=== PATIENT | female | born 1960 | race Caucasian/White ===

== ENCOUNTER 2018-06-13 15:21 | Outpatient (CLI) | payer OTHER ==
--- NOTE | 2018-06-13 17:34 | BD ---
Exam: DEXA Bone Density 06/13/18 HISTORY: 57-year-old postmenopausal female for screening. Lumbar Spine: BMD (g/cm2) L1 0.816 T-Score: -1.6 L2 0.879 T-Score: -1.4 L3 0.891 T-Score: -1.8 L4 0.916 T-Score: -1.3 L1-L4 0.876 T-Score: -1.6 Left Femoral Neck: 0.630 T-Score: -2.0 Total proximal Femur: 0.815 T-Score: -1.0 Impression: Osteopenia. This patient has a ten year WHO fracture risk of a major osteoporotic fracture of 12% and hip fracture of 1.6%. When compared to the prior examination the bone density in the hip has increas ed approximately 13%. The bone density in the spine has not changed significantly. POS: JOSHUA
== END 2018-06-13 15:22 | disposition home or self-care (01) ==
LOC: BICMAMMO 15:21
PROVIDERS: ATTEND Physician Assistant
DX: Z12.31 Encounter for screening mammogram for malignant neoplasm of breast (principal); Z13.820 Encounter for screening for osteoporosis; R92.1 Mammographic calcification found on diagnostic imaging of breast; Z85.89 Personal history of malignant neoplasm of other organs and systems
CPT/HCPCS: 77063; 77067; 77080

== ENCOUNTER 2019-06-12 16:56 | Emergency (ER) | payer OTHER ==
[2019-06-12] MEDS ORDERED: Acetaminophen 500 MG TAB ONE (17:34)
== END 2019-06-12 17:38 | disposition home or self-care (01) ==
LOC: SCSER 16:56
DX: S01.81XA Laceration without foreign body of other part of head, initial encounter (principal); W22.8XXA Striking against or struck by other objects, initial encounter

== ENCOUNTER 2019-06-23 09:54 | Emergency (ER) | payer OTHER ==
--- NOTE | 2019-06-23 10:31 | CT ---
Exam: CT brain PROVIDED CLINICAL HISTORY: Headache COMPARISON: None FINDINGS: The ventricular system is normal in size and morphology. No evidence for intracranial hemorrhage or mass effect. The extracranial soft tissues and osseous structures demonstrate no evidence for an acute abnormality. IMPRESSION: No evidence for intracranial hemorrhage or mass effect.
== END 2019-06-23 10:33 | disposition home or self-care (01) ==
LOC: SCSER 09:54
DX: S09.90XA Unspecified injury of head, initial encounter (principal); W11.XXXA Fall on and from ladder, initial encounter
CPT/HCPCS: 70450

== ENCOUNTER 2019-09-05 16:06 | Outpatient (CLI) | payer OTHER ==
--- NOTE | 2019-09-05 17:09 | MMO ---
Bilateral MAMMO Bilat Screen [facility]. CLINICAL HISTORY: Patient is 58 years old and is seen for screening. The patient has no family history of breast cancer. The patient has no personal history of cancer. VIEWS: The views performed were: bilateral craniocaudal with tomosynthesis and bilateral mediolateral oblique with tomosynthesis. FILMS COMPARED: The present examination has been compared to prior imaging studies performed at [facility] on 06/20/2014 and 06/13/2018, and at [facility] on 02/03/2010 and 06/08/2012. This study has been interpreted with the assistance of computer-aided detection. MAMMOGRAM FINDINGS: There are scattered fibroglandular densities. There are no suspicious masses, suspicious calcifications, or new areas of architectural distortion. IMPRESSION: THERE IS NO MAMMOGRAPHIC EVIDENCE OF MALIGNANCY. A ROUTINE FOLLOW-UP MAMMOGRAM IN 1 YEAR IS RECOMMENDED. THE RESULTS OF THIS EXAM WERE SENT TO THE PATIENT. ACR BI-RADS Category 1 - Negative MAMMOGRAPHY NOTE: 1. A negative mammogram report should not delay a biopsy if a dominant of clinically suspicious mass is present. 2. Approximately 10% to 15% of breast cancers are not detected by mammography. 3. Adenosis and dense breasts may obscure an underlying neoplasm. Reported by: KALEY TURNER MD Electonically Signed: [id number]
== END 2019-09-05 16:07 | disposition home or self-care (01) ==
LOC: BICMAMMO 16:06
PROVIDERS: ATTEND Family Medicine
DX: Z12.31 Encounter for screening mammogram for malignant neoplasm of breast (principal)
CPT/HCPCS: 77063; 77067

== ENCOUNTER 2022-03-05 12:39 | Outpatient (CLI) | payer BC | END 2022-03-05 12:40 | disposition home or self-care (01) | LOC: BICMAMMO 12:39 | PROVIDERS: ATTEND Family Medicine | DX: Z12.31 Encounter for screening mammogram for malignant neoplasm of breast (principal); M85.88 Other specified disorders of bone density and structure, other site; Z78.0 Asymptomatic menopausal state | CPT/HCPCS: 77063; 77067; 77080 ==

== ENCOUNTER 2024-08-14 14:52 | Outpatient (CLI) | payer BC | END 2024-08-14 14:53 | disposition home or self-care (01) | LOC: BICMAMMO 14:52 | PROVIDERS: ATTEND Family Medicine | DX: Z12.31 Encounter for screening mammogram for malignant neoplasm of breast (principal); Z78.0 Asymptomatic menopausal state; N64.89 Other specified disorders of breast; M85.89 Other specified disorders of bone density and structure, multiple sites | CPT/HCPCS: 77063; 77067; 77080 ==

== ENCOUNTER 2024-08-22 14:46 | Outpatient (CLI) | payer BC | END 2024-08-22 14:47 | disposition home or self-care (01) | LOC: BICMAMMO 14:46 | PROVIDERS: ATTEND Family Medicine | DX: N64.89 Other specified disorders of breast (principal) | CPT/HCPCS: G0279 ==